=== PATIENT | male | born 1990 | race Caucasian/White ===

== ENCOUNTER → 2017-03-05 | Outpatient (REF) ==
[~2017-03-05] MED LIST: LORTAB 5/500 501 TAB PO; MOTRIN 800800 MG/TAB PO; PROZAC 10MG10 MG PO; RITALIN10 MG PO; ZOFRAN 4MG T4 MG/TAB PO
== END ==
LOC: ZLAB.WCH 18:21
DX: Z01.89 Encounter for other specified special examinations (principal)

== ENCOUNTER → 2017-08-24 | Outpatient (REF) | LOC: ZLAB.WCH 12:03 | DX: Z01.89 Encounter for other specified special examinations (principal) ==

== ENCOUNTER → 2019-03-17 | Outpatient (REF) | LOC: COL.CARD 15:02 | DX: Z01.818 Encounter for other preprocedural examination (principal) ==